=== PATIENT | female | born 2000 | race Caucasian/White ===

== ENCOUNTER 2019-01-12 20:04 | Emergency (ER) | payer OTHER ==
[2019-01-12 20:16] VITALS: BP 109/70
[2019-01-12] MEDS ORDERED: Ondansetron ODT TAB* 4 MG PO ONE (21:42)
--- NOTE | 2019-01-12 22:12 | UC ---
Nausea/Vomiting/Diarrhea HPI - HPI Summary HPI Summary: RETURNED FROM [facility] 5 DAYS AGO. THE DAY BEFORE SHE LEFT SHE DEVELOPED NAUSEA AND VOMITING AND DIARRHEA. DIARRHEA HAS NOW ABATED BUT SHE STILL HAS PERSISTENT NAUSEA AND VOMITING. APPETITE IS DECREASED. NO FEVER. NO HEADACHE. NO RASH. MOTHER WITH SIMILAR SYMPTOMS WHO WAS ALSO WITH HER IN [facility]. MOTHER SEEMS TO BE IMPROVING AT THIS TIME. - History of Current Complaint Chief Complaint: UCGI Stated Complaint: NAUSEA, AND VOMITING Time Seen by Provider: 01/12/19 21:26 Hx Obtained From: Patient Hx Last Menstrual Period: [id number] Onset/Duration: Sudden Onset, Lasting Days, Still Present Severity Initially: Moderate Severity Currently: Moderate Pain Intensity: 4 Pain Scale Used: 0-10 Numeric Location: Diffuse Character: Cramping Aggravating Factor(s): Food Alleviating Factor(s): Nothing - Allergies/Home Medications Allergies/Adverse Reactions: Allergies Allergy/AdvReac Type Severity Reaction Status Date / Time amoxicillin Allergy Rash Verified 01/12/19 20:17 gluten Allergy GI Upset Verified 01/12/19 20:17 Home Medications: Home Medications Aspirin SUPP* [Aspirin Supp 300 MG] 300 mg TX Q4H PRN 01/12/19 [History Confirmed 01/12/19] Escitalopram * [Lexapro *] 20 mg PO DAILY 01/12/19 [History Confirmed 01/12/19] Loratadine [Claritin 10 MG CAP] 10 mg PO DAILY 01/12/19 [History Confirmed 01/12] Norgestimate-Ethinyl Estradiol [Norg-Ee 0.18-0.215-0.25/0.025] 1 tab PO DAILY [History Confirmed 01/12/19] Ondansetron ODT TAB* [Zofran 4 MG Odt TAB*] 4 mg PO Q6H PRN 01/12/19 [History Confirmed 01/12/19] PMH/Surg Hx/FS Hx/Imm Hx - Additional Past Medical History Additional PMH: ADHD Respiratory History: Asthma Psychological History: Anxiety - Surgical History Surgical History: None - Family History Known Family History: Positive: Other - no reported known family history. - Social History Alcohol Use: Weekly Alcohol Amount: 2x Substance Use Type: Marijuana Substance Use Comment - Amount & Last Used: weekly Smoking Status (MU): Never Smoked Tobacco - Immunization History Vaccination Up to Date: Yes Review of Systems All Other Systems Reviewed And Are Negative: Yes Constitutional: Positive: Negative Skin: Positive: Negative Respiratory: Positive: Negative Cardiovascular: Positive: Negative Gastrointestinal: Positive: Abdominal Pain, Vomiting, Diarrhea, Nausea Genitourinary: Positive: Negative Physical Exam Triage Information Reviewed: Yes Appearance: Well-Appearing, No Pain Distress, Well-Nourished Vital Signs: Initial Vital Signs Temp 98.1 F 01/12/19 20:10 Pulse 81 01/12/19 20:10 Resp 16 01/12/19 20:10 BP 109/70 01/12/19 20:10 Pulse Ox 100 01/12/19 20:10 Vital Signs Reviewed: Yes Eyes: Positive: Conjunctiva Clear ENT: Positive: Hearing grossly normal Neck: Positive: Supple, Nontender, No Lymphadenopathy Respiratory Exam: Normal Cardiovascular Exam: Normal Abdomen Description: Positive: Soft, Other: - MILD DIFFUSE TENDERNESS. Negative : CVA Tenderness (R), CVA Tenderness (L), Distended, Guarding Bowel Sounds: Positive: Present Musculoskeletal: Positive: No Edema Neurological: Positive: Alert Psychological: Positive: Age Appropriate Behavior Skin: Negative: Rashes Naus/Vom/Diarrhea Course/Dx - Course Course Of Treatment: PATIENT'S SYMPTOMS ARE IMPROVED WITH NAUSEA MEDICINE ON BOARD. DISCUSSED TRANSFER TO THE ER FOR FURTHER EVALUATION INCLUDING LAB WORK AND POSSIBLE IMAGING. SHE DECLINES IN FAVOR OF CAREFUL OBSERVATION AT HOME, CLEAR LIQUID DIET AND NAUSEA MEDICINE. ADVISED TO GO TO THE ER WITHOUT FAIL IF HER SYMPTOMS WORSEN. NO NOTICES IN EFFECT IN [facility] PER [facility]. - Differential Dx/Diagnosis Provider Diagnosis: Gastroenteritis Condition At Discharge: Stable Discharge - Sign-Out/Discharge Documenting (check all that apply): Patient Departure All imaging exams completed and their final reports reviewed: No Studies - Discharge Plan Condition: Stable Disposition: HOME Prescriptions: Ondansetron ODT TAB* [Zofran Odt TAB*] 4 mg PO Q8H PRN #15 tab.odt PRN Reason: Nausea/Vomiting Patient Education Materials: Gastroenteritis (ED) Referrals: Yordy Chester MD [Primary Care Provider] - If Needed Additional Instructions: GASTROENTERITIS: You have gastroenteritis ("intestinal flu"). This disease is usually caused by a virus. There is no specific treatment. The disease will end by itself. For now, the main danger is dehydration. Give clear liquids. Examples include Pedialyte, Gatorade, clear broth, juices, flat sodas, and jello water. Medications may be prescribed by the physician for special cases. Once tolerated, the clear liquid diet may be supplemented with rice, cereal, toast, applesauce, or bananas. GO TO THE [facility] WITHOUT FAIL if vomiting increases or blood appears in the bowel movement or vomitus; if you fail to improve, or if signs of dehydration occur (tongue and mouth become dry, lethargy). ENSURE ADEQUATE HYDRATION. CLEAR LIQUIDS, BLAND DIET. AVOID CAFFEINE, DAIRY, GREASY, SPICY FOODS. ONCE YOU ARE TOLERATING CLEAR LIQUIDS YOU CAN ADVANCE TO SIMPLE, BLAND FOODS. GO TO THE ER WITHOUT FAIL IF YOU DEVELOP WORSENING ABDOMINAL PAIN, BLOOD IN THE STOOL OR VOMIT, FEVER OR ANY OTHER CONCERNING SYMPTOMS. - Billing Disposition and Condition Condition: STABLE Disposition: Home
== END 2019-01-12 22:01 | disposition home or self-care (01) ==
LOC: UCEAST 20:04
DX: K52.9 Noninfective gastroenteritis and colitis, unspecified (principal); F41.9 Anxiety disorder, unspecified
CPT/HCPCS: 99212; A9270-GY; G0463

== ENCOUNTER 2019-07-20 01:00 | Emergency (ER) | payer OTHER ==
--- OUTSIDE RECORDS SUMMARY | 2019-07-20 01:43 | XMS REPORT | Continuity of Care Document ---
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 Celiac disease Onset: 12/20/2018 Inactive Problems Vomiting Onset: 02/01/2019 Inactive: 02/01/2019 Diarrhea Onset: 02/01/2019 Inactive: 02/01/2019 Adult health examination Onset: 12/20/2018 Inactive: 12/20/2018 Body mass index 20-24 - normal Onset: 12/20/2018 Inactive: 12/20/2018 Social History Type Date Description Comments Sex Unknown Tobacco Use Start: Unknown Patient has never smoked Smoking Status Reviewed: 06/11/19 Patient has never smoked Allergies, Adverse Reactions, Alerts Active Allergies Reaction Severity Comments Date Amoxicillin HIves in mouth 06/11/2019 Gluten celiac disease 06/11/2019 Medications Active Medications SIG Qnty Indications Ordering Date Provider Clotrimazole one application 28gm Rosio 06/11/2019 Anti-Fungal twice daily to Karnow, DO 1% Cream affected area for up to two weeks Concerta one tab once daily 30tabs Rosio 05/30/2019 36mg Tablets by mouth Karnow, DO ER Clonazepam 0.5 three times 45tabs Unknown 02/27/2019 1mg daily Oral Tablets Clonazepam 0.5 three times 45tabs Unknown 02/26/2019 1mg daily prn Oral Tablets Ondansetron 1 prn Oral Unknown 01/14/2019 4mg Tablets Dispers Clonazepam 1 as needed Oral Unknown 12/20/2018 1mg Tablets Escitalopram Oxalate 1 daily Oral Unknown 12/20/2018 20mg Tablets History Medications Acyclovir Apply 5 times a day 15units Unknown 02/01/2019 - 5% Ointment External 02/08/2019 Metronidazole 1 3 times a day 15tabs Unknown 01/27/2019 - 250mg Tablets Oral 02/01/2019 Norgestimate-Eth 1 daily Oral Unknown 12/20/2018 - Estradiol 02/01/2019 0.25-35mg-mcg Tablets Concerta 1 as needed Oral Unknown 12/20/2018 - 27mg Tablets ER 05/30/2019 Medications Administered in Office Medication SIG Qnty Indications Ordering Provider Date Meningococcal Conjugate Vaccine Unknown 09/19/2016 (Menveo) Injection Meningococcal Conjugate Vaccine Unknown 01/11/2011 (Menveo) Injection DTaP Vaccine Younger Than 7 Unknown 09/25/2002 (Infanrix) Injection DTaP Vaccine Younger Than 7 Unknown 03/16/2000 (Infanrix) Injection DTaP Vaccine Younger Than 7 Unknown 03/23/1999 (Infanrix) Injection DTaP Vaccine Younger Than 7 Unknown 01/19/1999 (Infanrix) Injection DTaP Vaccine Younger Than 7 Unknown 1998 (Infanrix) Injection Immunizations CPT Code Status Date Vaccine Lot # 56022 Given 04/23/2019 Flu < 65 years 27198 Given 07/03/2014 Influenza Virus Vaccine, Quadrivalent, Split, Im Use 0.25ML 95937 Given 07/03/2014 Influenza Virus Vaccine, Quadrivalent, Split, Im Use 0.25ML 60126 Given 07/03/2014 Influenza Virus Vaccine, Quadrivalent, Split, Im Use 0.25ML 00274 Given 07/03/2014 Flu < 65 years 16506 Given 07/03/2014 Influenza Virus Vaccine, Quadrivalent, Split, Preservative Free 55156 Given 07/03/2014 Flumist 44794 Given 07/03/2014 Flu High Dose 88349 Given 07/03/2014 Influenza Virus Vaccine, Split, Preserv Free, Intradermal Use 30136 Given 06/26/2012 Influenza Virus Vaccine, Split, Preserv Free, Intradermal Use 57688 Given 06/26/2012 Flu High Dose 76712 Given 06/26/2012 Flumist 75366 Given 06/26/2012 Influenza Virus Vaccine, Quadrivalent, Split, Preservative Free 24438 Given 06/26/2012 Flu < 65 years 08408 Given 06/26/2012 Influenza Virus Vaccine, Quadrivalent, Split, Im Use 0.25ML 57156 Given 06/26/2012 Influenza Virus Vaccine, Quadrivalent, Split, Im Use 0.25ML 74634 Given 06/26/2012 Influenza Virus Vaccine, Quadrivalent, Split, Im Use 0.25ML 16544 Given 01/27/2010 Tdap - Boostrix/Adacel 03702 Given 01/27/2010 Tdap - Boostrix/Adacel 57793 Given 01/27/2010 Tdap - Boostrix/Adacel 28681 Given 12/30/2008 Varicella (Chicken Pox) Vaccine 24832 Given 05/13/2004 Hep B 11-15yr, Recombivax 1.0ml dose only 07681 Given 01/13/2004 Varicella (Chicken Pox) Vaccine 05544 Given 12/10/2003 Hep B 11-15yr, Recombivax 1.0ml dose only 01290 Given 11/07/2003 Hep B 11-15yr, Recombivax 1.0ml dose only 67181 Given 09/25/2002 MMR Vaccine 68459 Given 09/25/2002 Polio - Ipol 46575 Given 03/16/2000 Hib ActiHib/Hiberix 21175 Given 12/22/1999 MMR Vaccine 08471 Given 06/15/1999 Polio - Ipol 74530 Given 03/23/1999 Hib ActiHib/Hiberix 58545 Given 02/15/1999 Polio - Ipol 33897 Given 01/19/1999 Hib ActiHib/Hiberix 56818 Given 1998 Polio - Ipol 52276 Given 1998 Hib ActiHib/Hiberix Vital Signs Date Vital Result Comment 06/11/2019 3:21pm BP Systolic 108 mmHg BP Diastolic 78 mmHg Height 61.5 inches 5'1.50" Weight 110.00 lb Heart Rate 81 /min Body Temperature 98.0 F O2 % BldC Oximetry 99 % BMI (Body Mass Index) 20.4 kg/m2 02/21/2019 8:57am BP Systolic 110 mmHg Weight 110.00 lb Heart Rate 86 /min Body Temperature 97.0 F O2 % BldC Oximetry 98 % Results Test Acquired Facility Test Result H/L Range Note Date HCG, Urine 02/21/2019 N2N/CCD Import HCG, Urine Negative [facility] 01/03/2019 N2N/CCD Import [facility]tered 01/03/19 [facility] 12/20/2018 N2N/CCD Import [facility] 12/20/18 HIV Test Offered 12/20/2018 N2N/CCD Import HIV Test Offered Declined Procedures Date Code Description Status 02/21/2019 63121 Insert Intrauterine Device Completed 02/01/2019 04026 Brief Emotional/Behav Assessment W/ Scoring Doc Per Completed Standard Inst Medical Devices Description No Information Available Encounters Type Date Location Provider Dx Diagnosis Office Visit 06/11/2019 [facility] Rosio Pena, F90.0 Attn-defct 3:15p DO hyperactivity disorder, predom inattentive type F41.1 Generalized anxiety disorder K13.0 Diseases of lips Assessments Date Code Description Provider 06/11/2019 F90.0 Attention-deficit hyperactivity disorder, Rosio Pena DO predominantly inattentive type 06/11/2019 F41.1 Generalized anxiety disorder Rosio Pena DO 06/11/2019 K13.0 Diseases of lips Rosio Pena DO Plan of Treatment Future Appointment(s):12/10/2019 3:45 pm - Rosio Pena DO at [facility] Main - Rosio Pena DOF90.0 Attention-deficit hyperactivity disorder, predominantly inattentive typeComments:Recent increase in dose and here to discuss how it is going She is tolerating it well with only slight decrease in appetite - no other side effectsIf starts to feel like too much, she will let me know if wants to decrease dose again Since she is well controlled, reasonable for f3eqioh med follow upF41.1 Generalized anxiety disorderComments: Doing wellNot overusing her Clonazepam but does need it occasionally Continue daily escitalopram q6 month follow up for check in about medsK13.0 Diseases of lipsComments:New topic today This is most likely angular chelitisWe discussed managementShroosevelt has already tried many of the thingsShe is now only using petroleum on her lipsWill do trial of antifungal If this does not work, then will try mupirocin - she will call She is also to apply petroleum jelly every night and nothing else on the lipsShe will call if things don't get betterAllNew Medication:Clotrimazole Anti-Fungal 1 % - one application twice daily to affected area for up to two weeks Functional Status Description No Information Available Mental Status Description No Information Available Referrals Description No Information Available
[2019-07-20] MEDS ORDERED: Ondansetron ODT TAB* 4 MG SL ONE (01:45)
--- NOTE | 2019-07-20 01:52 | ED ---
Substance Abuse/Use - HPI Summary HPI Summary: This pt is a 18 Y/O F presenting to [facility] accompanied by her boyfriend and a CC of N/V following alcohol consumption. Her boyfriend states that they went out to dinner prior to the incident. Her boyfriend states that they were having a normal night before they went to the bars when she started vomiting and was disoriented. She states that she is feeling good. She states that she drank too much and asked her boyfriend to take her to the hospital. She started taking a new medication and her boyfriend stated that he was scared about a potential drug interaction. She has no aggravating or alleviating symptoms. She has a PMHx of celiac disease but her boyfriend states that she did not eat anything with excessive amounts of gluten in it. - History Of Current Complaint Chief Complaint: EDSubstanceAbuse Stated Complaint: ETOH PER PT FRIEND Time Seen by Provider: 07/20/19 01:39 Hx Obtained From: Patient, Family/[employer] - boyfriend Hx Last Menstrual Period: [id number] Onset/Duration of Drug/ETOH Abuse: Hours Ingestion History: Type/Name Of Drug - wine and spiced rum Overdose Characteristics: Oral Severity Initially: Severe Severity Currently: Moderate Character: Other - intoxicated Aggravating Factor(s): Nothing Alleviating Factor(s): Nothing Associated Signs And Symptoms: Nausea, Vomiting - Allergies/Home Medications Allergies/Adverse Reactions: Allergies Allergy/AdvReac Type Severity Reaction Status Date / Time amoxicillin Allergy Rash Verified 07/20/19 01:04 gluten Allergy GI Upset Verified 07/20/19 01:04 PMH/Surg Hx/FS Hx/Imm Hx Previously Healthy: Yes Respiratory History: Reports: Hx Asthma Sensory History: Reports: Hx Contacts or Glasses - reading Opthamlomology History: Reports: Hx Contacts or Glasses - reading Neurological History: Reports: Hx Headaches - Cancer History Hx Chemotherapy: No Hx Radiation Therapy: No - Surgical History Hx Anesthesia Reactions: Yes - Immunization History Immunizations Up to Date: Yes Infectious Disease History: No Infectious Disease History: Denies: Traveled Outside the [place] in Last 30 Days - Family History Known Family History: Positive: Cardiac Disease, Other - no reported known family history. Negative: Diabetes - Social History Occupation: Employed Part-time, Student Lives: Dormitory/Roommates Alcohol Use: Weekly Alcohol Amount: 2x Hx Substance Use: Yes Substance Use Type: Reports: Marijuana Substance Use Comment - Amount & Last Used: weekly Hx Tobacco Use: No Smoking Status (MU): Never Smoked Tobacco Review of Systems Positive: Vomiting, Nausea Positive: Other - intoxicated All Other Systems Reviewed And Are Negative: Yes Physical Exam - Summary Physical Exam Summary: Appearance: Well-appearing, Well-nourished, lying in bed comfortably Skin: Warm, dry, no obvious rash Eyes: sclera anicteric, Conjugate, no nystagmus ENT: mucous membranes moist, pharynx appears normal Neck: Supple, nontender Respiratory: Clear to auscultation, no signs of respiratory distress Cardiovascular: Normal S1, S2. No murmurs. Normal distal pulses in tibial and radial bilaterally. Abdomen: Soft, nontender, normal active bowel sounds present Musculoskeletal: Normal, Strength/ROM Intact Neurological: A&Ox3, awake and alert, mentation is normal, speech is fluent and appropriate Psychiatric: affect is normal, does not appear anxious or depressed Triage Information Reviewed: Yes Vital Signs On Initial Exam: Initial Vitals Temp Pulse Resp BP Pulse Ox 97.5 F 88 16 110/72 100 07/20/19 01:00 07/20/19 01:00 07/20/19 01:00 07/20/19 01:00 07/20/19 01:00 Vital Signs Reviewed: Yes Procedures - Sedation Patient Received Moderate/Deep Sedation with Procedure: No Diagnostics - Vital Signs Vital Signs Temp Pulse Resp BP Pulse Ox 07/20/19 01:00 97.5 F 88 16 110/72 100 - Laboratory Lab Statement: Any lab studies that have been ordered have been reviewed, and results considered in the medical decision making process. Course/Dx - Course Course Of Treatment: This pt is a 18 Y/O F presenting to [facility] accompanied by her boyfriend and a CC of N/V following alcohol consumption. Her boyfriend states that they went out to dinner prior to the incident. Her boyfriend states that they were having a normal night before they went to the bars when she started vomiting and was disoriented. She states that she is feeling good. She states that she drank too much and asked her boyfriend to take her to the hospital. Her PE found that she is awake and alert and delphine to answer questions adequetly. Her eyes are conjugate but without nystagmus. Her Serum Alcohol level is a 287. She will be discharged into the care of her parents with a Dx of acute alcohol intoxication. - Diagnoses Provider Diagnoses: Acute alcohol intoxication Discharge ED - Sign-Out/Discharge Documenting (check all that apply): Patient Departure - discharge - Discharge Plan Condition: Good Disposition: HOME Patient Education Materials: Alcohol Intoxication (ED), Abuse of Alcohol (ED) Referrals: Yordy Chester MD [Primary Care Provider] - If Needed - Billing Disposition and Condition Condition: GOOD Disposition: Home - Attestation Statements Document Initiated by Mellyibe: Yes Documenting Scribe: Champ Patel Provider For Whom Angela is Documenting (Include Credential): Herbert Raza MD Scribe Attestation: Champ Wills scribed for Herbert Raza MD on 07/20/19 at 1924. Scribe Documentation Reviewed: Yes Provider Attestation: The documentation as recorded by the Champ maradiaga accurately reflects the service I personally performed and the decisions made by , Herbert Raza MD Status of Scribe Document: Viewed
[2019-07-20 02:34] LABS: Alcohol 287 mg/dL (<10)
[2019-07-20 02:42] LABS: HCG Pregnancy < 0.60 mIU/mL
[2019-07-20 03:02] VITALS: BP 109/66
== END 2019-07-20 03:15 | disposition home or self-care (01) ==
LOC: ED 01:00
DX: F10.929 Alcohol use, unspecified with intoxication, unspecified (principal); J45.909 Unspecified asthma, uncomplicated; Z88.0 Allergy status to penicillin
CPT/HCPCS: 36415; 80320; 84702; 99282; A9270-GY; G0480